=== PATIENT | female | born 1965 | race Caucasian/White ===

== ENCOUNTER 2020-01-03 14:41 | Emergency (ER) | payer MEDICARE, MEDICAID, SELFPAY ==
[2020-01-03 14:50] VITALS: BP 135/74; PULSE 69; RESP 16; TEMP 36.4; O2SAT 100; BMI 32.9
--- NOTE | 2020-01-03 15:17 | XR_ITS ---
WS: [id number] [place] [id number] REASON FOR EXAM: pain FINDINGS: Fracture through the surgical neck of the right humerus. There also appears to be fracture through th e base of the greater biceps tuberosity. No significant fragment displacement. Humeral head on the frontal views appears in normal relationshi p with the glenoid. XR/[place] [id number] IMPRESSION: 3 part proximal humeral fracture as above.
--- NOTE | 2020-01-03 17:26 | W.ED.EXTPRO ---
HPI - Extremity Problem General: Chief complaint: Extremity Injury, Upper Stated complaint: fell/shoulder pain Time Seen by Provider: 01/03/20 17:18 History of Present Illness: HPI Narrative: 54-year-old female who fell at home 4 days ago. She had been going to get out of a chair and tripped and fell she seen a doctor in [place] was told that she most likely had a proximal humerus fracture was given a sling unfortunately does not look like she ever used it. She does not have it with her today. They have made an appointment for her with a follow-up orthopedic evaluation in [place] next week. She tells me they did not get a x-ray at the time she was seen in [place]. Complaint: extremity pain Onset (ago): day(s) Pain Consistency: constant Location: left Quality: sharp Radiation: distal Relieving factors: immobilization Exacerbating factors: range of motion and palpation Associated symptoms: Deny arthralgias, chest pain, fever(s), myalgias or rash Context: other (Recent fall) Review of Systems Const: Denies: fever(s) ENMT: Denies: throat pain, ear or mastoid pain, nasal discharge or nasal congestion Card: Denies: chest pain Resp: Denies: dyspnea, productive cough or non-productive cough GI: Denies: abdominal pain, nausea, vomiting, hematemesis, coffee ground emesis, diarrhea, constipation, bloating, hematochezia or melena : Denies: flank pain, difficulty voiding, dysuria, urinary frequency or urinary urgency Skin/Breast: Denies: rash Physical Exam Const: COMMON NORMALS: no acute distress GENERAL APPEARANCE: cooperative and comfortable ORIENTATION/CONSCIOUSNESS: Yes awake, Yes oriented to person, Yes oriented to place and Yes oriented to time HENMT: COMMON NORMALS: normocephalic, atraumatic and hearing grossly normal bilaterally HEAD & SCALP: normocephalic and atraumatic Neck/C-Spine: COMMON NORMALS: no JVD Resp: COMMON NORMALS: normal respiratory effort, No retractions, No use of accessory muscles and clear to auscultation bilaterally AUSCULTATION: clear to auscultation bilaterally Cardio: COMMON NORMALS: no JVD, regular rate, regular rhythm and No murmurs present (Cardio) RATE: regular rate RHYTHM: regular rhythm GI: COMMON NORMALS: Soft to palpation and No hepatosplenomegaly present AUSCULTATION: Yes normoactive bowel sounds PALPATION: Yes Soft to palpation, No Tenderness to palpation present (GI), No Guarding due to palpation present (GI) and Yes No hepatosplenomegaly present Extremity: COMMON NORMALS: normal to inspection, capillary refill normal, no clubbing, cyanosis or edema, no calf tenderness and no pedal edema Neuro: SENSORIUM/ORIENTATION: Yes oriented to person, Yes oriented to place and Yes oriented to time Skin: COMMON NORMALS: no rashes or lesions noted GENERAL SKIN EXAM: no rashes or lesions noted Course Vital Signs: Vital signs: Vital Signs Temperature 97.6 F 01/03/20 14:50 Pulse Rate 69 01/03/20 14:50 Respiratory Rate 16 01/03/20 14:50 Blood Pressure 135/74 01/03/20 14:50 Pulse Oximetry 100 01/03/20 14:50 MDM - Extremity (Nontraumatic) MDM Narrative: Medical decision making narrative: Fracture of humerus reviewed with the patient will discharge home offered referral to local orthopedics which she were to follow-up with orthopedics in [place] patient given pain medication and a sling follow-up with previously scheduled orthopedic consultation. Asked patient to remain in sling until removed by Ortho. Discharge Plan Discharge Patient Disposition: Home Clinical Impression: Fracture of humerus Condition: Stable Prescriptions: New hydrocodone-acetaminophen 5-325 mg tablet 1 tab PO Q6H PRN (Reason: pain) Qty: 20 RF: 0 No Action fluoxetine 40 mg capsule 40 mg PO DAILY RF: 0 furosemide 40 mg tablet 40 mg PO DAILY RF: 0 carvedilol 25 mg tablet 25 mg PO BID RF: 0 atorvastatin 20 mg tablet 20 mg PO DAILY RF: 0 ibuprofen 800 mg tablet 800 mg PO DAILY PRN (Reason: Pain) RF: 0 amitriptyline 75 mg tablet 75 mg PO DAILY RF: 0 meloxicam 15 mg tablet 15 mg PO DAILY RF: 0 sucralfate 1 gram tablet 1 g PO QID PRN (Reason: Stomach Upset) RF: 0 spironolactone 100 mg tablet 100 mg PO DAILY RF: 0 sumatriptan succinate 50 mg tablet 50 mg PO PRN PRN (Reason: Migraine Headache) RF: 0 omeprazole 40 mg capsule,delayed release(DR/EC) 40 mg PO BID RF: 0 ondansetron 8 mg tablet,disintegrating 8 mg PO TID PRN (Reason: Nausea) RF: 0 baclofen 20 mg tablet 20 mg PO TID PRN (Reason: Pain) RF: 0 levothyroxine 125 mcg tablet 125 mcg PO DAILY RF: 0 lidocaine 5 % adhesive patch,medicated 1 patch topical DAILY PRN (Reason: Pain) RF: 0 hydroxyzine HCl 25 mg tablet 25 mg PO DAILY RF: 0 Ventolin HFA 90 mcg/actuation HFA aerosol inhaler 2 puff inhalation DAILY PRN (Reason: Shortness Of Breath) RF: 0 dicyclomine 10 mg capsule 10 mg PO QID PRN (Reason: Stomach Upset) RF: 0 topiramate 50 mg tablet 50 mg PO BID RF: 0 pregabalin 300 mg capsule 300 mg PO BID RF: 0 Janumet 50-1,000 mg tablet 1 tab PO BID RF: 0 Xifaxan 550 mg tablet 550 mg PO BID RF: 0 Aimovig Autoinjector 70 mg/mL auto-injector 70 mg SUBCUT Q30D RF: 0 Discharge Orders: Discharge Order (Routine); Ordered 01/03/20 Ordered By: Jhon Byrd Referrals: Hernando Chaparro MD [Primary Care Provider] - Discharge Date/Time: 01/03/20 18:17 Coding Level of Care Code ED Behavioral Therapy Coordinator for Chg Fwd Exam Comprehensive
== END 2020-01-03 18:17 | disposition home or self-care (01) ==
PROVIDERS: Emergency Provider Family Medicine; PCP Family Medicine
DX: S42.302A Unspecified fracture of shaft of humerus, left arm, initial encounter for closed fracture (principal); W01.0XXA Fall on same level from slipping, tripping and stumbling without subsequent striking against object, initial encounter
CPT/HCPCS: 12345; 73060; 99281; 99283